=== PATIENT | male | born 1995 | race Two or more races ===

== ENCOUNTER → 2017-03-19 13:11 | Outpatient (CLI) | payer MEDICARE | END | disposition home or self-care (01) | LOC: D.RAD 13:11 | DX: M47.816 Spondylosis without myelopathy or radiculopathy, lumbar region (principal) ==

== ENCOUNTER 2017-06-07 09:06 | Emergency (ER) | payer MEDICARE | END 2017-06-07 09:56 | disposition home or self-care (01) | LOC: D.ER 09:06 | DX: S49.92XA Unspecified injury of left shoulder and upper arm, initial encounter (principal); V73.5XXA Driver of bus injured in collision with car, pick-up truck or van in traffic accident, initial encounter; Y93.89 Activity, other specified; Y92.410 Unspecified street and highway as the place of occurrence of the external cause; S69.92XA Unspecified injury of left wrist, hand and finger(s), initial encounter; E03.9 Hypothyroidism, unspecified; F17.200 Nicotine dependence, unspecified, uncomplicated ==

== ENCOUNTER → 2017-06-07 14:29 | Outpatient (CLI) | payer MEDICARE | END | disposition home or self-care (01) | LOC: D.RAD 14:29 | DX: M25.512 Pain in left shoulder (principal) ==

== ENCOUNTER → 2017-06-15 12:51 | Outpatient (CLI) | payer MEDICARE | END | disposition home or self-care (01) | LOC: D.RAD 12:51 | DX: S16.1XXA Strain of muscle, fascia and tendon at neck level, initial encounter (principal); X58.XXXA Exposure to other specified factors, initial encounter; Y93.89 Activity, other specified; Y92.89 Other specified places as the place of occurrence of the external cause ==

== ENCOUNTER → 2018-04-29 14:22 | Outpatient (CLI) | payer MEDICARE | END | disposition home or self-care (01) | LOC: D.RAD 14:22 | DX: M25.512 Pain in left shoulder (principal) ==

== ENCOUNTER → 2018-05-22 12:45 | Outpatient (CLI) | payer MEDICARE | END | disposition home or self-care (01) | LOC: D.RAD 12:45 | DX: S49.92XA Unspecified injury of left shoulder and upper arm, initial encounter (principal); X58.XXXA Exposure to other specified factors, initial encounter ==

== ENCOUNTER 2018-06-18 09:40 | Day surgery (SDC) | payer MEDICARE ==
[~2018-06-18] VITALS: Ht 180.3 cm; Wt 111.1 kg
[~2018-06-18 09:40] MED LIST: LEVOTHYROXINE50 MCG PO; VITAMIN D250000 UNIT PO
[2018-06-18 11:15] VITALS: BP 120/72; Ht 180.3 cm; Wt 111.1 kg
[2018-06-18] MEDS ORDERED: PERCOCET 7.5/321 TAB PO (16:15)
[2018-06-18] MEDS ORDERED: VISTARIL50 MG PO (16:16)
--- NOTE | 2018-06-20 06:37 | OP ---
PATIENT NAME: TIMBO DAVENPORT MEDICAL RECORD: [id number] :96 LOCATION:[facility] ADMISSION DATE: SURGEON: JOCELINE SONI DO DATE OF OPERATION: 06/18/2018 PROCEDURE PERFORMED: Left SLAP repair. PREOPERATIVE DIAGNOSIS: Left shoulder SLAP tear. POSTOPERATIVE DIAGNOSIS: Left shoulder SLAP tear. INDICATION: Mr. Davenport is a 23-year-old male that came into the clinic with left shoulder pain. It had been hurting for quite some time. An MR arthrogram was done and it indeed showed a SLAP tear of the left shoulder. He was informed that he could try therapy and try conservative management with this, but it has been hurting him so long that he wanted something done surgically. I told him we could do a SLAP repair due to his young age and the risks would be infection, bleeding, damage to nerve and vessels, need for further surgery, failure of the repair, tightness in the shoulder, not gaining back full range of motion. He was okay with those risks and signed the consent. SURGEON: Joceline Soni DO DESCRIPTION OF PROCEDURE: The patient was given a block by anesthesia, taken to the operative suite, laid in the right lateral decubitus position with the left shoulder up, and then a time-out was performed. Everyone in agreement with correct side, site, patient, and procedure. The left shoulder was then prepped and draped in sterile fashion. He was given 900 mg of clindamycin. Then, the procedure was begun with insufflating the shoulder through the posterior portal with 18-gauge spinal needle and 60 cc of normal saline insufflating the shoulder joint. A #11 blade scalpel was then used to make the posterior portal and the trocar was entered into the shoulder joint. Two anterior portals were then made through the rotator interval and the SLAP tear was noted. The rest of shoulder looked good. There were no tears in supraspinatus, subscapularis, or infraspinatus that were seen. The shoulder joint looked good, nothing in the inferior gutter. The rasp was then brought in and rasp for the repair was going to be around the glenoid. Then, through the cannula, the needle was brought in to pass the nitinol wire. This was passed through the anterior portion first and then the labral tape was passed through it. We passed through the same portal and then the drill was brought in. The guide hole was made for the PushLock. The suture tape was then pushed through the PushLock and this was impacted down into the glenoid, having a very nice repair. I then attempted to get some posterior labrum that was slightly torn as well. This was abandoned after I could not get the wire passed through the labrum posteriorly. As a good repair anteriorly, the labrum did not move. The labrum was probed at that time and it did not come off the glenoid whatsoever so it was sufficient with one anchor. The portals and cannulas were then removed and they were closed with 4-0 Monocryl in inverted interrupted fashion. Then, Dermabond, Telfa, and Tegaderm were placed on the shoulder. The patient was to put in a sling with pillow, awakened, and taken to recovery in stable condition. TRANSINT:[id number] Voice Confirmation ID: [id number] DOCUMENT ID: [id number] OPERATIVE REPORT [id number] TIMBO DAVENPORT MICHAEL D, DO at 0637 CC: [id number] DICTATION DATE: 06/18/18 1625 [employer] ADMINISTRATOR: 06/18/181916 [facility] 06/18/18 [facility] [address] [place] [address]
== END 2018-06-18 19:00 | disposition home or self-care (01) ==
LOC: D.OPS 09:40 → D.PAN 12:00 → D.OPS 12:00 → D.PAN 12:55 → D.OPS 14:15 → D.PAN 17:00 → D.OPS 19:00
PROVIDERS: ATTEND Orthopaedic Surgery
DX: S43.432A Superior glenoid labrum lesion of left shoulder, initial encounter (principal); X58.XXXA Exposure to other specified factors, initial encounter; Z01.812 Encounter for preprocedural laboratory examination

== ENCOUNTER → 2019-06-13 09:29 | Outpatient (CLI) | payer MEDICARE ==
[2018-06-18 11:15] VITALS: BMI 34.2
[~2019-06-13 09:29] MED LIST changes: +PERCOCET 7.5/321 TAB PO; +VISTARIL50 MG PO
== END | disposition home or self-care (01) ==
LOC: D.US 09:29
PROVIDERS: ATTEND Family Medicine
DX: R94.5 Abnormal results of liver function studies (principal)